=== PATIENT | female | born 1970 | race Caucasian/White ===

== ENCOUNTER 2020-03-04 11:43 | Emergency (ER) | payer BC ==
[2020-03-04] MEDS ORDERED: Ketorolac Tromethamine 30 MG/ML VIAL ONE (12:27)
[2020-03-04] MEDS ORDERED: Ampicillin/Sulbactam 3 GM in Sodium Chloride 0.9% 100 ML IVPB SCH (12:30)
== END 2020-03-04 14:05 | disposition home or self-care (01) ==
LOC: ERS 11:43
DX: S61.250A Open bite of right index finger without damage to nail, initial encounter (principal); S61.251A Open bite of left index finger without damage to nail, initial encounter; S61.253A Open bite of left middle finger without damage to nail, initial encounter; D64.9 Anemia, unspecified; M06.9 Rheumatoid arthritis, unspecified; F98.8 Other specified behavioral and emotional disorders with onset usually occurring in childhood and adolescence; Z79.899 Other long term (current) drug therapy; W53.21XA Bitten by squirrel, initial encounter
CPT/HCPCS: 96365; 96375; J0295; J1885; J3490

== ENCOUNTER 2021-10-02 10:30 | Outpatient (CLI) | payer BC | END 2021-10-02 10:31 | disposition home or self-care (01) | LOC: TBSIIMAG 10:30 | PROVIDERS: ATTEND Neurological Surgery | DX: M47.26 Other spondylosis with radiculopathy, lumbar region (principal) | CPT/HCPCS: 72100 ==